=== PATIENT | male | born 1980 | race Caucasian/White ===

== ENCOUNTER 2016-12-28 09:03 | Emergency (ER) | payer OTHER ==
--- NOTE | 2016-12-28 09:32 | C.PDOC ---
Chief Complaint (Nursing): Abnormal Skin Integrity Past Medical History - Social History Hx Alcohol Use: No Hx Substance Use: No - Immunization History Hx Tetanus Toxoid Vaccination: No Hx Influenza Vaccination: No Hx Pneumococcal Vaccination: No Disposition - Disposition
[2016-12-28] MEDS ORDERED: Bacitracin 500 Units/gm Oint Foilpak UD TOP ONE (09:55)
[2016-12-28] MEDS ORDERED: Lidocaine 2% Inj (20ml) INFIL ONE (09:55)
--- NOTE | 2016-12-28 10:02 | C.PDOC ---
History Of Present Illness 36 year old male presents to the ED for evaluation of laceration to the second finger of the left hand just prior to arrival. Patient states he was using a knife when he accidentally cut his hand. He is right hand dominate and is not up to date with tetanus. Patient denies changes in sensation or other injuries. Time Seen by Provider: 12/28/16 09:49 Chief Complaint (Nursing): Abnormal Skin Integrity History Per: Patient History/Exam Limitations: no limitations Onset/Duration Of Symptoms: Hrs (just prior to arrival ) Current Symptoms Are (Timing): Still Present Location Of Injury: Left: Hand (second finger laceration) Recent travel outside of the [place]: No Past Medical History Reviewed: Historical Data, Nursing Documentation, Vital Signs Vital Signs: Last Vital Signs Temp 98.3 F 12/28/16 10:40 Pulse 68 12/28/16 10:40 Resp 18 12/28/16 10:40 BP 124/84 12/28/16 10:40 Pulse Ox 98 12/28/16 10:40 Family History: States: Unknown Family Hx - Social History Hx Alcohol Use: No Hx Substance Use: No - Immunization History Hx Tetanus Toxoid Vaccination: No Hx Influenza Vaccination: No Hx Pneumococcal Vaccination: No Review Of Systems Constitutional: Negative for: Fever Neurological: Negative for: Weakness, Numbness Physical Exam - Physical Exam Appears: Non-toxic, No Acute Distress Skin: Warm, Dry, Other (3 cm left laceration to second finger palmar aspect ) Head: Atraumatic, Normacephalic Eye(s): bilateral: Normal Inspection, EOMI Nose: Normal Oral Mucosa: Moist Chest: Symmetrical Respiratory: No Accessory Muscle Use Extremity: Normal ROM, Tenderness, Capillary Refill (good capillary refill, less than two seconds ), No Deformity, No Swelling Pulses: Left Radial: Normal, Right Radial: Normal Neurological/Psych: Oriented x3, Normal Motor (5/5 against resistance), Normal Sensation ED Course And Treatment Progress Note: Laceration repair was performed and discussed with patient proper wound care. Finger splint was applied by sound engineering technician and checked by me. Patient was given tetanus shot and instructed to follow up with hand specialist in 1-2 days. Laceration - Laceration Repair Left 2nd Finger Laceration Wound Length (In cm): 3 cm Description Of Wound: Linear Wound Cleansed With: Betadine, Sterile Saline Anesthesia: Lidocaine 2% Wound Examination: Irrigated With Saline, No FB With Wound Exploration, No Tendon Injury With Wound Exploration Wound Debridement/Revision: Wound Debrided Wound Closure: Suture (6 sutures) Suture Technique And Material Used: Nylon (4-0 ) Wound Complexity: Simple Disposition - Disposition Referrals: Ga Mendez MD [Staff Provider] - Disposition: HOME/ ROUTINE Disposition Time: 09:59 Condition: STABLE Additional Instructions: Wound check in 2 days. Suture removal in 10 days. Return to ER if symptoms persist or worsen. Watch for signs of infection including redness, swelling, or discharge. Instructions: Finger Laceration (ED) Forms: DOZ (Slovenian) - Clinical Impression Clinical Impression: Finger laceration - PA / PHARMACY ACCOUNT DIRECTOR / Resident Statement MD/DO has reviewed & agrees with the documentation as recorded. - Scribe Statement The provider has reviewed the documentation as recorded by the Scribe Arely Shannon All medical record entries made by the Scribe were at my direction and personally dictated by me. I have reviewed the chart and agree that the record accurately reflects my personal performance of the history, physical exam, medical decision making, and the department course for this patient. I have also personally directed, reviewed, and agree with the discharge instructions and disposition.
[2016-12-28] MEDS ORDERED: Lidocaine 2% Inj (20ml) ONE (10:03)
[2016-12-28] MEDS ORDERED: Bacitracin 500 Units/gm Oint Foilpak UD ONE (10:04)
[2016-12-28 10:41] VITALS: BP 124/84; PULSE 68; RESP 18; TEMP 98.3; O2SAT 98
== END 2016-12-28 10:45 | disposition home or self-care (01) ==
LOC: C.ER 09:03
DX: S61.211A Laceration without foreign body of left index finger without damage to nail, initial encounter (principal); W26.0XXA Contact with knife, initial encounter

== ENCOUNTER 2017-01-22 08:36 | Day surgery (SDC) | payer OTHER ==
[2017-01-19 08:56] VITALS: BMI 33.4
[2017-01-22] MEDS ORDERED: Lidocaine 1% Inj (20ml) ONE (09:47)
[2017-01-22] MEDS ORDERED: Bupivacaine-Epi 0.25%-1:200,000 PF Inj ONE (09:47)
[2017-01-22] MEDS ORDERED: ceFAZolin IV 2 gm in Dextrose 1 GM/50 ML BAG IVPB ONE (09:47)
[2017-01-22] MEDS ORDERED: Bupivacaine HCl 0.25% PF (10 ml) Inj ONE (09:55)
[2017-01-22] MEDS ORDERED: Lactated Ringer's 1,000 ML IV ONE ×2 (12:15→14:24)
[2017-01-22] MEDS ORDERED: Propofol 10 mg/ml Inj (20 ML) ONE (13:02)
[2017-01-22] MEDS ORDERED: Midazolam 2 MG/2 ML VIAL ONE (13:04)
[2017-01-22] MEDS ORDERED: Neostigmine Methylsulfate 3mg/3ml Syringe IV ONE (13:50)
[2017-01-22] MEDS ORDERED: Rocuronium 10 mg/ml (5 ml) ONE (13:50)
[2017-01-22] MEDS ORDERED: Morphine 4 MG/ML VIAL ONE (14:17)
--- NOTE | 2017-01-22 14:47 | PCM.SURG1 ---
Surgeon's Initial Post Op Note - Surgeon's Notes Surgeon: Dr. Killian Centrifugal Separator: Dr. Reid PGY2, Maru ROBERSONA Type of Anesthesia: General Endo Pre-Operative Diagnosis: cholelithiasis Operative Findings: see dictation Post-Operative Diagnosis: same Operation Performed: robot-assisted laparoscopic cholecystectomy Specimen/Specimens Removed: gallbladder Estimated Blood Loss: EBL {In ML}: 10 Blood Products Given: N/A Drains Used: No Drains Post-Op Condition: Good Date of Surgery/Procedure: 01/22/17 Time of Surgery/Procedure: 12:55
[2017-01-22] MEDS: HYDROmorphone 0.5 mg/0.5 ml ISec IVP PRN ×2 (15:20→15:41)
[2017-01-22 16:50] VITALS: BP 116/90; PULSE 66; RESP 18; TEMP 97; O2SAT 100
--- NOTE | 2017-01-23 22:29 | OP ---
DATE OF PROCEDURE: 01/22/2017 PREOPERATIVE DIAGNOSES: Chronic cholecystitis and chololithiasis. POSTOPERATIVE DIAGNOSES: Chronic cholecystitis and chololithiasis. PROCEDURE PERFORMED: Robotic cholecystectomy. SURGEON: Mukul Killian MD. SUPERVISOR BRIDGES AND BUILDINGS: Romelia Reid. ANESTHESIA: General endotracheal tube anesthesia. ESTIMATED BLOOD LOSS: Around 10 mL. DRAINS: None. PATHOLOGY: Gallbladder with the gallstone were sent for the pathology. COMPLICATIONS: None. INTRAOPERATIVE FINDINGS: The patient had changes of chronic cholecystitis and chololithiasis with large gallbladder stone. INDICATIONS FOR PROCEDURE: This 36-year-old male who was diagnosed with chronic cholecystitis and cholelithiasis, and the patient was consented for the robotic cholecystectomy, possible open. DESCRIPTION OF PROCEDURE: The patient was brought to the OR and placed supine on the operating table. After induction of the anesthesia, the supraumbilical transverse incision was made after incising skin, subcutaneous tissue, and the fascia. A robotic camera port was placed. Pneumo was created. Another three 8-mm robotic cameras were placed in the upper abdomen. The robot was brought in. Camera arm as well as arm #1 and arm #2 were docked and gallbladder was retracted cranially. Calot triangle dissection was done. The cystic duct and cystic artery were clipped at 3 places and cut in between 2 clips near by gallbladder, and gallbladder was dissected-free from the gallbladder fossa, taken in EndoCatch bag, taken out through the umbilical port site. All the instrument was taken out. The robot was undocked. All the ports were taken out under vision. Pneumo was deflated. Umbilical port site was closed using 2 layers, the fascia with 0-Vicryl interrupted sutures, skin with a 4-0 Monocryl. Dry sterile dressing was applied. The patient was extubated in OR and sent to the Postanesthesia Care Unit in stable condition. Mukul Killian MD
== END 2017-01-22 17:36 | disposition home or self-care (01) ==
LOC: C.SDS 08:36
PROVIDERS: ATTEND Surgery Surgical Critical Care
DX: K80.10 Calculus of gallbladder with chronic cholecystitis without obstruction (principal)
CPT/HCPCS: 47562; 88304; J0131; J0690; J1100; J1170; J1885; J2001; J2250; J2270; J2405; J2704; J2710; J3010; J7030; J7120; S2900